=== PATIENT | male | born 1975 | race African-American/Black ===

== ENCOUNTER 2017-07-10 06:59 | Emergency (ER) | payer SELFPAY ==
[~2017-07-10] VITALS: Ht 185.4 cm; Wt 160.0 kg
[2017-07-10 07:07] VITALS: BP 177/112; PULSE 82; RESP 20; TEMP 98.4; O2SAT 98
[2017-07-10 08:49] VITALS: BP 167/98; PULSE 78; RESP 18; O2SAT 100
[2017-07-10] MEDS ORDERED: MAGICPED SWISH-SWAL (08:53)
[2017-07-10] MEDS ORDERED: PRED-503 PO (08:53)
[2017-07-10] MEDS ORDERED: TRAM50TA PO (08:53)
[2017-07-10] MEDS ORDERED: CLIN150C14 PO (08:53)
[2017-07-10] MEDS ORDERED: IBUP1TAB7 PO (08:53)
--- NOTE | 2017-07-10 08:53 | PD ---
HPI Chief Complaint: Oral / Dental Pain or Problem Time Seen by Provider: 08:41 Travel History International Travel<30 days: No Contact w/Intl Traveler<30days: No Traveled to known affect area: No History of Present Illness HPI 42-year-old male presents to the emergency department with complaint of swelling and pain of his upper front gingiva. Denies sore throat, difficulty swallowing, unusual drooling. Denies fever, vomiting. Reports having hot and cold flashes. Rates pain 8/10. Has tried taking Advil and gargling peroxide. Pain is constant. Aggravated with palpation and pressure to the area. no known relieving factors. No known allergies. No primary care provider. Denies significant past medical history. Has no other medical complaints. [facility] Social History Alcohol Use: Yes Tobacco Use: No Substance Use: Yes ("Smoke weed") Allergies-Medications (Allergen,Severity, Reaction): Coded Allergies: No Known Allergies (Verified , 07/04/14) Reported Meds & Prescriptions Reported Meds & Active Scripts Active Deltasone (Prednisone) 20 Mg Tab 40 Mg PO DAILY start 07/11/2017 Tramadol (Tramadol HCl) 50 Mg Tab 50 Mg PO Q4H PRN Magic Mouthwash Pediatric/Adult Liq (Lidocaine/Diphenhydr/Alum/Mg/Simeth) 60 Ml Susp 5 Ml SWISH-SWAL Q3HR PRN Each 5mL contains: Diphenydramine 4.5mg, Viscous Lidocaine 2% 10mg, Maalox Advanced Regular Strength 2.7ml Ibuprofen 800 Mg Tab 800 Mg PO Q6HR PRN Clindamycin (Clindamycin HCl) 150 Mg Cap 450 Mg PO Q6H 10 Days Review of Systems Except as stated in HPI: all other systems reviewed are Neg Physical Exam Narrative GENERAL: Well-nourished, well-developed black male patient, in no acute distress ; afebrile, nontoxic-appearing SKIN: Warm and dry. HEAD: Atraumatic. Normocephalic. Edema noted to the upper lip in between the lip and the nose; without erythema; with tenderness on palpation. No lymphadenopathy. EYES: Pupils equal and round. No scleral icterus. No injection or drainage. ENT: Mucosa pink and moist. No erythema or exudates. No uvular edema. No uvular , palatal, or tonsillar deviation. Airway patent. EARS: Bilateral pinnae and external canals appear within normal limits. Bilateral tympanic membranes without erythema, dullness or perforation. MOUTH: Mucous membranes moist, no lesions, tongue and gums appear normal. Edentulous to upper front teeth and surrounding teeth with severe dental cavities and decay; gingiva with fluctuance and obvious abscess noted. Surrounding gingiva is without erythema, drainage. NECK: Trachea midline. No lymphadenopathy. CARDIOVASCULAR: Regular rate. RESPIRATORY: No accessory muscle use. GASTROINTESTINAL: Obese. MUSCULOSKELETAL: No obvious deformities. No clubbing. No cyanosis. No edema. NEUROLOGICAL: Awake and alert. Oriented 3. No obvious cranial nerve deficits. Motor grossly within normal limits. Normal speech. PSYCHIATRIC: Appropriate mood and affect; insight and judgment normal. Data Data Last Documented VS Vital Signs Date Time Temp Pulse Resp B/P (MAP) Pulse Ox O2 Delivery O2 Flow Rate FiO2 07/10/17 09:33 07/10/17 08:49 78 18 100 Room Air 07/10/17 07:07 98.4 Orders Orders Clindamycin Inj (Cleocin Inj) (07/10/17 09:00) Ketorolac Inj (Toradol Inj) (07/10/17 09:00) Prednisone (Deltasone) (07/10/17 09:00) Ed Discharge Order (07/10/17 08:54) MDM Medical Decision Making Medical Screen Exam Complete: Yes Emergency Medical Condition: Yes Medical Record Reviewed: Yes Differential Diagnosis Dental abscess, gingivitis, dental caries Narrative Course 42-year-old male physical exam consistent with dental abscess to his upper front gingiva. Patient is afebrile and nontoxic-appearing. Denies fever, vomiting. See my procedure note for incision and drainage. Patient provided emergency dental information sheet for follow-up. Clindamycin IM 600 mg, Deltasone, Toradol administered in the ER. Clindamycin, Magic mouthwash, prednisone, tramadol, ibuprofen prescribed for home. Instructed patient to follow-up with dentist. Instructed patient to follow up with primary care provider. Patient verbalizes understanding and agreement with treatment plan. Patient is medically cleared and stable for discharge. Discussed reasons to return to the emergency department. Patient agrees with treatment plan. The patients vital signs are stable and the patient is stable for outpatient follow- up and treatment. Patient discharged home, stable and in no acute distress. Diagnosis Primary Impression: Dental abscess Referrals: [facility] Dentist Primary Care Physician Patient Instructions: Dental Abscess (ED), General Instructions Departure Forms: Tests/Procedures, Work Release Enter return to work date: Jul 11, 2017 Additional Instructions: Complete full course of antibiotics Ibuprofen or Tylenol as directed and as needed to reduce pain and inflammation Use Peridex as directed for oral hygiene Warm or cool compresses to the affected area Follow-up with dentist Follow-up with primary care provider Return to emergency department immediately with worsening of symptoms Med/Other Pt SpecificInfo: Prescription(s) given Scripts Prednisone (Deltasone) 20 Mg Tab 40 MG PO DAILY, #4 TAB 0 Refills start 07/11/2017 Prov: Olya Hardy 07/10/17 Tramadol (Tramadol) 50 Mg Tab 50 MG PO Q4H Y for PAIN, #8 TAB 0 Refills Prov: Olya Hardy 07/10/17 Wrndspxcigzymac-Carzjswcs-Lpn-Alum-Simeth Liq (Magic Mouthwash Pediatric/Adult Liq) 60 Ml Susp 5 ML SWISH-SWAL Q3HR Y for PAIN SCALE 1 TO 10, #60 ML 0 Refills Each 5mL contains: Diphenydramine 4.5mg, Viscous Lidocaine 2% 10mg, Maalox Advanced Regular Strength 2.7ml Prov: Olya Hardy 07/10/17 Ibuprofen (Ibuprofen) 800 Mg Tab 800 MG PO Q6HR Y for PAIN, #30 TAB 0 Refills Prov: Olya Hardy 07/10/17 Clindamycin (Clindamycin) 150 Mg Cap 450 MG PO Q6H for Infection for 10 Days, #120 CAP 0 Refills Prov: Olya Hardy 07/10/17 Disposition: 01 DISCHARGE HOME Condition: Stable Olya Hardy Jul 10, 2017 08:53
[2017-07-10] MEDS ORDERED: predniSONE 20 MG TAB PO ONE (09:00)
[2017-07-10] MEDS ORDERED: KETOROLAC TROMETHAMINE 60 MG/2 ML (IM) VIAL IM ONE (09:00)
[2017-07-10] MEDS ORDERED: CLINDAMYCIN PHOS 600 MG/4 ML VIAL IM ONE (09:00)
== END 2017-07-10 09:35 | disposition home or self-care (01) ==
LOC: NEPD 06:59
DX: K04.7 Periapical abscess without sinus (principal); F12.90 Cannabis use, unspecified, uncomplicated
CPT/HCPCS: 96372; 99284; J1885; J7512